=== PATIENT | female | born 1990 | race Caucasian/White ===

== ENCOUNTER → 2023-03-18 | Outpatient (CLI) | payer BC ==
[2023-03-19 02:06] LABS: Basophils # (A) 0.05 X 10*3/uL (0.00-0.10); Basophils % (A) 0.7 %; Eosinophils # (A) 0.11 X 10*3/uL (0.04-0.35); Eosinophils % (A) 1.4 %; HCT 42.1 % (37.2-46.3); Lymphocytes % (A) 23.7 %; MCH 30.3 pg (27.0-32.0); MCHC 33.3 d/dL (32.0-37.0); MCV 91.1 FL (80.0-97.0); Mean Platelet Volume 12.1 FL (9.5-12.2); Monocytes # (A) 0.59 X 10*3/uL (0.20-1.00); Monocytes % (A) 7.8 %; NRBC Per 100 WBC 0 X 10*3/uL (0.00-0.01); Neutrophils # (A) 5.02 X 10*3/uL (1.80-7.70); Neutrophils % (A) 66.1 %; Platelet Count 257 X 10*3/uL (140-440); RBC 4.62 X 10*6/uL (4.10-5.20); RDW 12.3 % (11.5-14.5); WBC 7.59 X 10*3/uL (4.50-10.00)
== END | disposition home or self-care (01) ==
LOC: LABPAT 12:43
PROVIDERS: ATTEND Obstetrics & Gynecology
DX: Z01.812 Encounter for preprocedural laboratory examination (principal); O02.1 Missed abortion; Z3A.00 Weeks of gestation of pregnancy not specified
CPT/HCPCS: 85025

== ENCOUNTER 2023-03-21 08:33 | Day surgery (SDC) | payer BC ==
[~2023-03-21 08:33] MED LIST: DEXAMETHASONE SOD PHOSPHATE 4 MG/ML 1 ML VIAL IV ONE; HYDROmorphone 0.5 MG/0.5 ML SYRINGE IVP PRN; LACTATED RINGERS 1,000 ML IV SCH; LIDOCAINE 1% (10MG/ML) FOR IV START INTRADERMA PRN; ONDANSETRON 4 MG/2 ML VIAL IVP ONE; Pre Op ABX Message 1 EACH MISC MISCELLANE ONE; SCOPOLAMINE 1 MG/72 HR PATCH TRANSDERM ONE; droPERidol 5 MG/2 ML VIAL IVP ONE
--- NOTE | 2023-03-21 10:13 | P.HPOB ---
History of Present Illness H&P Date: 03/21/23 Chief Complaint: Missed This is a 32-year-old 1 with a last menstrual period of 12/18/2022 who should be approx 12 weeks by dates and has findings of a 7 week empty gestational sac. This has been expectedly managed without spontaneous passage and she has failed medical management. She is therefore scheduled for suction D&C. She is having ongoing minimal vaginal bleeding with no passage of tissue. She denies abdominal pain. Review of Systems Constitutional: Denies chills, Denies fever Cardiovascular: Denies chest pain, Denies lightheadedness, Denies shortness of breath Respiratory: Denies cough Gastrointestinal: Denies abdominal pain, Denies nausea, Denies vomiting Genitourinary: Reports abnormal vaginal bleeding Menstruation: Reports as per HPI Integumentary: Denies rash Neurological: Denies headaches Psychiatric: Denies depression Past Medical History Past Medical History: No Reported History History of Any Multi-Drug Resistant Organisms: None Reported Past Surgical History: No Surgical Hx Reported Past Anesthesia/Blood Transfusion Reactions: No Reported Reaction Additional Past Anesthesia/Blood Transfusion Reaction / Comment(s): no blood tx hx Smoking Status: Never smoker Medications and Allergies Home Medications Medication Instructions Recorded Confirmed Type Prental Gummie(Unk) 1 tab PO DAILY 03/17/23 03/21/23 History Allergies Allergy/AdvReac Type Severity Reaction Status Date / Time No Known Allergies Allergy Verified 03/21/23 09:24 Exam Vital Signs Temp Pulse Resp BP Pulse Ox 03/21/23 09:24 97.1 F L 77 18 137/65 99 Intake and Output 03/20/23 03/21/23 03/21/23 22:59 06:59 14:59 Other: Weight 122.7 kg This is a pleasant woman in no apparent distress. HEENT exam is unremarkable with no lymphadenopathy or thyromegaly. The lungs are clear to auscultation bilaterally without in the breathing is regular. Heart is a regular rate and rhythm. The abdomen is soft and nontender with no rebound and guarding. Pelvic examination previous performed in the office shows a closed cervix with minimal dark blood bleeding. On bimanual examination the uterus is approximately 8 weeks' size, freely mobile and nontender. There are no adnexal masses. Neurologically the patient is grossly intact. Affect normal. Assessment and Plan (1) Missed Current Visit: Yes Status: Acute Code(s): O02.1 - MISSED SNOMED Code(s): 69434067 Plan: Patient admitted to the outpatient surgery for suction dilation and curettage. This procedure has been reviewed with the patient including risks which are bleeding, transfusion, infection, uterine perforation with possible injury to pelvic organs, ongoing retained products and/or anesthesia complications. Consent has been obtained. The patient's blood type is Rh+.
[2023-03-21] MEDS ORDERED: PROPOFOL 10 MG/ML 20 ML VIAL IV ONE (11:00)
[2023-03-21] MEDS ORDERED: fentaNYL (PF) 50 MCG/ML 2 ML AMP ONE (11:00)
[2023-03-21] MEDS ORDERED: LIDOCAINE 2% INJ 20 MG/ML (2 ML VIAL) ONE (11:00)
[2023-03-21] MEDS ORDERED: LIDOCAINE 1%-EPI 1:100,000 20 ML VIAL SUBMUCOSAL ONE (11:20)
[2023-03-21 11:42] VITALS: TEMP 97
[2023-03-21] MEDS ORDERED: KETOROLAC 15 MG/ML 1 ML VIAL IVP ONE ×2 (12:18→12:19)
[2023-03-21 13:09] VITALS: BP 119/85; PULSE 66; RESP 16
--- NOTE | 2023-03-21 16:27 | P.OP ---
Date of Procedure: 03/21/23 Preoperative Diagnosis: MIssed Postoperative Diagnosis: same Procedure(s) Performed: suction D&C Anesthesia: MAC Surgeon: Meghan Ochoa Estimated Blood Loss (ml): 35 IV fluids (ml): 300 Urine output (ml): 50 Pathology: other (products of conception) Condition: stable Disposition: PACU Indications for Procedure: Missed , failed medical management Operative Findings: 8 week size uterus on exam, appropriate prodicts of conception obtained Description of Procedure: After the patient and her partner were met in pre op and all questions answered, she was taken to the OR where anesthetic was administered without issue. She was then positioned prepped and draped in the lithotomy position. Bimanual exam was performed. The bladder was drained. A weight speculum was placed in the vagina and the cervix was grasped anteriorly with a tenaculum. A paracervical block was placed with lidocaine plu epinephrine. The uterus was sounded to 11 cm. The cervix was then dilated using jonas dilators to allow for passage of the #8 curved suction curette. The uterus when then circumstantially curettaged and appropriate tissue obtained. The sharp banjo curett was then used to sharply curette the uterine cavity with scant tissue. A final pass with the suction reviled no further tissue. Instruments removed from the cervix and no active bleeding was noted. Speculum removed and the patent was awoken from anesthesia and transported to the recovery room in good condition. All counts correct, Pt is Rh +
== END 2023-03-21 13:24 | disposition home or self-care (01) ==
LOC: OR 08:33
PROVIDERS: ATTEND Obstetrics & Gynecology
DX: O02.1 Missed abortion (principal); Z79.899 Other long term (current) drug therapy
CPT/HCPCS: 81025; 86900; 86901; 88305; 86850; 59820; J1100; J2405; J3010; J1885; J2704; J2001